=== PATIENT | female | born 1950 | race African-American/Black ===

== ENCOUNTER 2017-01-20 18:31 | Observation (INO) ==
[2017-01-20] MEDS ORDERED: 0.9 % Sodium Chloride 1,000 ML IVC ONE (18:56)
[2017-01-20 19:10] LABS: Basophils # 0.1 K/mcL (0.0-0.2); Eosinophils # 0.3 K/mcL (0.0-0.6); Hematocrit 37.9 % (35.3-44.9); Hemoglobin 13.4 g/dL (11.5-15.4); Immature Granulocytes % 0.1 % (0-4); Lymphocytes % 57.6 %; Mean Corpuscular HGB Conc 35.4 g/dL (31.6-35.5); Mean Corpuscular Hemoglobin 27.6 pg (28.0-33.3); Mean Corpuscular Volume 78.1 fL (83.0-100.0); Mean Platelet Volume 9.2 fL (9.4-12.4); Monocytes # 0.8 K/mcL (0.0-1.3); Monocytes % 11.7 %; Neutrophils # 1.8 K/mcL (1.6-8.9); Platelet Count 268 K/mcL (140-400); Red Blood Count 4.85 M/mcL (3.82-4.97); Red Cell Distribution Width 13.7 % (11.5-14.5); Segmented Neutrophils % 25.6 %
[2017-01-20 19:17] LABS: INR 1.1; Prothrombin Time 11.7 Seconds (9.4-12.1)
[2017-01-20 19:20] LABS: Activated Partial Thrombo Time 27.8 Seconds (26.0-36.0)
--- NOTE | 2017-01-20 19:20 | Emergency Department Note ---
Disposition Clinical Impression: Syncope Qualifiers: Syncope type: unspecified Qualified Code(s): R55 - Syncope and collapse Altered mental status Qualifiers: Altered mental status type: unspecified Qualified Code(s): R41.82 - Altered mental status, unspecified Chest pain Qualifiers: Chest pain type: unspecified Qualified Code(s): R07.9 - Chest pain, unspecified Disposition: Admitted As Inpatient Condition: Fair Referrals: Sosa Bryan MD [Primary Care Provider] - Time of Disposition: 22:14 General Adult HPI - General Chief complaint: ED Weakness Stated complaint: AMS Time Seen by Provider: 01/20/17 18:37 Source: patient, EMS Mode of arrival: ambulatory Nursing Notes Reviewed: Yes Vital Signs Reviewed: Yes - History of Present Illness HPI Narrative: Patient is a 66-year-old female that presents to the emergency department for altered mental status. Patient arrived via EMS. Reports from EMS and the family state that she was going to the bathroom this afternoon and by the nieces went to check on her and she was minimally responsive. They do not think that she fell but did have loss of consciousness. The patient states that she has been having chest pain intermittently for the past couple of days in the left side of her chest. She states that she rates this pain as a 10 out of 10. She also complains of abdominal pain located in the suprapubic area. Patient denies any shortness of breath, urinary symptoms or any other pains at this time. Pain Scale: 10 - Related Data Home Medications Medication Instructions Recorded Confirmed Vit D3/Folic Acid/B2/B6/B12 01/20/17 Previous Rx's Medication Instructions Recorded Ondansetron HCl [Zofran] 4 mg PO Q6HR PRN #10 tablet 09/11/15 Dicyclomine [Bentyl] 10 mg PO DAILY PRN #30 capsule 06/17/16 Allergies Allergy/AdvReac Type Severity Reaction Status Date / Time No Known Allergies Allergy Unverified 03/16/15 08:37 All systems ED: reviewed and negative except as stated. Cardiovascular: Reports: chest pain Respiratory: Denies: dyspnea Gastrointestinal: Reports: abdominal pain Genitourinary: Denies: urgency, dysuria Neurological: Reports: other (Patient states that she has had some tingling in her feet). Denies: weakness, numbness Past Medical History - Past Medical History Medical history: Reports: arthritis, hypertension, myocardial infarction, thyroid disease, other Psychiatric history: Reports: anxiety, depression - Social History Smoking Status: Current every day smoker Smokeless Tobacco Status: No Alcohol use: Reports: none Drug use: Reports: none Physical Exam - General Limitations: altered mental status General appearance: lethargic - Head Head exam: atraumatic, normocephalic - Neck Neck exam: Present: normal inspection, full ROM, trachea midline - Respiratory Respiratory exam: Present: normal lung sounds bilaterally, other (Rales bilaterally). Absent: respiratory distress - Cardiovascular Cardiovascular exam: Present: regular rate, normal rhythm, normal heart sounds, +S1, +S2 - Abdominal Exam Abdominal exam: Present: soft, tenderness, normal bowel sounds Abdominal tenderness: Present: suprapubic, moderate - Neurological Exam Neurological exam: Present: oriented X3, other (Patient is drowsy but oriented 3) - Expanded Neurological Exam Cranial nerves: EOM function (II, III, IV, ): Normal, facial sensation (V): Normal, facial palsy (VII): Normal, gag reflex (IX): Normal, spinal accessory function (XI): Normal, tongue deviation (XII): Normal Cerebellar function: finger to nose: Normal, heel to davis: Normal Motor strength - LUE: 5/5 Motor strength - RUE: 5/5 Motor strength - LLE: 5/5 Motor strength - RLE: 5/5 Sensory exam upper extremity: light touch: Normal Sensory exam lower extremity: light touch: Normal Coma Scale Eye Opening: Spontaneous Coma Scale Motor Response: Obeys Commands Coma Scale Verbal Response: Oriented Coma Scale Total: 15 - Psychiatric Psychiatric exam: Present: normal affect, normal mood - Skin Skin exam: Present: warm, dry, intact Course Vital Signs Temperature 97.7 F 01/20/17 18:32 Pulse Rate 71 01/20/17 18:32 Respiratory Rate 14 01/20/17 18:32 Blood Pressure 95/66 01/20/17 18:32 O2 Sat by Pulse Oximetry 93 01/20/17 18:32 Temperature 97.7 F 01/20/17 18:32 Pulse Rate 67 01/20/17 21:49 Respiratory Rate 16 01/20/17 21:49 Blood Pressure 139/70 01/20/17 21:49 O2 Sat by Pulse Oximetry 98 01/20/17 21:49 Oxygen Delivery Oxygen Delivery Room Air Medical Decision Making - MDM Narrative Medical decision making narrative: After the patient presented with altered mental status and chest pain we have done a cardiac workup as well as sepsis. Also did a CT of the head and a chest x-ray. The CT and chest x-ray were negative for any acute process. The patient 's EKG showed a sinus rhythm and was compared to previous EKG and was relatively unchanged. Patient's troponin was 0.02. Her lactic acid was 2.2. TSH and liver enzymes are within normal limits. Urinalysis had small amount of leuk esterase but this does not explain the patient's altered mental status. Patient stable hemoglobin on the emergency department. Had a normal creatinine and GFR. Patient's urine drug screen is positive for opiates, benzodiazepines and THC. Patient has a known prescription for the opiates and benzodiazepines. Patient stated that she had a headache and was given Tylenol for this. Patient vital signs are stable throughout her time in the emergency department. Due to the patient having a syncopal episode and altered mental status and stating that she still was not feeling well we will recommend that the patient be admitted to the hospital. I spoke with the patient about this and she agreed to be admitted to the hospital. I also updated the family members on the patient's current status and laboratory and imaging results.I called and spoke with Dr Ross at 2215 and they have accepted the patient to their service. Patient will be admitted to the hospital at this time. - Medical Records Medical records reviewed: Yes I reviewed the patient's medical records. - Lab Data Lab results reviewed: Yes I reviewed the patient's lab results. Result diagrams: 01/20/17 18:50 01/20/17 18:50 Lab Results 01/20/17 01/20/17 01/20/17 Range/Units 18:50 18:50 18:50 WBC 7.0 (4.3-11.1) K/mcL RBC 4.85 (3.82-4.97) M/mcL Hgb 13.4 (11.5-15.4) g/dL Hct 37.9 (35.3-44.9) % MCV 78.1 L (83.0-100.0) fL MCH 27.6 L (28.0-33.3) pg MCHC 35.4 (31.6-35.5) g/dL RDW 13.7 (11.5-14.5) % Plt Count 268 (140-400) K/mcL MPV 9.2 L (9.4-12.4) fL Immature Gran % 0.1 (0-4) % Seg Neutrophils % 25.6 % Lymphocytes % 57.6 % Monocytes % 11.7 % Eosinophils % 4.0 % Basophils % 1.0 % Neutrophils # 1.8 (1.6-8.9) K/mcL Lymphocytes # 4.0 (0.6-4.6) K/mcL Monocytes # 0.8 (0.0-1.3) K/mcL Eosinophils # 0.3 (0.0-0.6) K/mcL Basophils # 0.1 (0.0-0.2) K/mcL PT 11.7 (9.4-12.1) Seconds INR 1.1 APTT 27.8 (26.0-36.0) Seconds Sodium 140 (136-145) mEq/L Potassium 3.3 L (3.5-4.5) mEq/L Chloride 107 (98-109) mEq/L Carbon Dioxide 23 (19-29) mEq/L BUN 7 (7-20) mg/dL Creatinine 1.02 (0.57-1.11) mg/dL Est GFR ( Amer) > 60 (> 60) Est GFR (Non-Af Amer) 55 L (> 60) BUN/Creatinine Ratio 7 (6-26) Glucose 109 H (70-99) mg/dL Calculated Osmolality 289 (280-300) Lactic Acid (0.5-2.2) mmol/L Calcium 9.9 (8.6-10.8) mg/dL Total Bilirubin 0.3 (0.2-1.2) mg/dL Direct Bilirubin 0.2 (0.0-0.5) mg/dL Indirect Bilirubin 0.1 (0.0-1.2) mg/dL AST 14 (5-34) Units/L ALT 8 (0-55) Units/L Alkaline Phosphatase 126 (38-126) Units/L Troponin I (0-0.03) ng/mL Serum Total Protein 7.3 (6.0-8.3) g/dL Albumin 3.7 (3.5-5.0) g/dL Globulin 3.6 H (2.4-3.5) g/dL Albumin/Globulin Ratio 1.0 L (1.1-2.2) TSH 2.421 (0.350-4.840) mcIU/mL Urine Color (Yellow) Urine Clarity (Clear) Urine pH (5.0-8.0) pH Units Ur Specific Conception (1.010-1.025) Urine Protein (Neg-Trace) mg/dL Urine Glucose (UA) (Normal) mg/dL Urine Ketones (Negative) mg/dL Urine Blood (Negative) Urine Nitrite (Negative) Urine Bilirubin (Negative) Urine Urobilinogen (Normal) mg/dL Ur Leukocyte Esterase (Negative) Urine Microscopic RBC (0-3) per hpf Urine Microscopic WBC (0-3) per hpf Ur Squamous Epith Cells (None-Few) per lpf Urine Bacteria (None-Few) per hpf Urine Mucus (Few) Ur Culture Indicated? (NO) Urine Opiates Screen (Pcqbqf=223) ng/mL Ur Barbiturates Screen (Yvrqsi=128) ng/mL Ur Phencyclidine Scrn (Cutoff=25) ng/mL Ur Amphetamines Screen (Oaesvr=0501) ng/mL U Benzodiazepines Scrn (Ogjpjt=511) ng/mL Urine Cocaine Screen (Cutoff= 300) ng/mL U Marijuana (THC) Screen (Cutoff = 50) ng/mL Ethyl Alcohol < 10 (0-10) mg/dL 01/20/17 01/20/17 01/20/17 Range/Units 18:58 18:59 18:59 WBC (4.3-11.1) K/mcL RBC (3.82-4.97) M/mcL Hgb (11.5-15.4) g/dL Hct (35.3-44.9) % MCV (83.0-100.0) fL MCH (28.0-33.3) pg MCHC (31.6-35.5) g/dL RDW (11.5-14.5) % Plt Count (140-400) K/mcL MPV (9.4-12.4) fL Immature Gran % (0-4) % Seg Neutrophils % % Lymphocytes % % Monocytes % % Eosinophils % % Basophils % % Neutrophils # (1.6-8.9) K/mcL Lymphocytes # (0.6-4.6) K/mcL Monocytes # (0.0-1.3) K/mcL Eosinophils # (0.0-0.6) K/mcL Basophils # (0.0-0.2) K/mcL PT (9.4-12.1) Seconds INR APTT (26.0-36.0) Seconds Sodium (136-145) mEq/L Potassium (3.5-4.5) mEq/L Chloride (98-109) mEq/L Carbon Dioxide (19-29) mEq/L BUN (7-20) mg/dL Creatinine (0.57-1.11) mg/dL Est GFR ( Amer) (> 60) Est GFR (Non-Af Amer) (> 60) BUN/Creatinine Ratio (6-26) Glucose (70-99) mg/dL Calculated Osmolality (280-300) Lactic Acid (0.5-2.2) mmol/L Calcium (8.6-10.8) mg/dL Total Bilirubin (0.2-1.2) mg/dL Direct Bilirubin (0.0-0.5) mg/dL Indirect Bilirubin (0.0-1.2) mg/dL AST (5-34) Units/L ALT (0-55) Units/L Alkaline Phosphatase (38-126) Units/L Troponin I 0.02 (0-0.03) ng/mL Serum Total Protein (6.0-8.3) g/dL Albumin (3.5-5.0) g/dL Globulin (2.4-3.5) g/dL Albumin/Globulin Ratio (1.1-2.2) TSH (0.350-4.840) mcIU/mL Urine Color Dark Yellow (Yellow) Urine Clarity Cloudy A (Clear) Urine pH 5.5 (5.0-8.0) pH Units Ur Specific Conception 1.028 H (1.010-1.025) Urine Protein 30 H (Neg-Trace) mg/dL Urine Glucose (UA) Normal (Normal) mg/dL Urine Ketones Trace H (Negative) mg/dL Urine Blood Negative (Negative) Urine Nitrite Negative (Negative) Urine Bilirubin Small H (Negative) Urine Urobilinogen Normal (Normal) mg/dL Ur Leukocyte Esterase Small H (Negative) Urine Microscopic RBC 3-5 H (0-3) per hpf Urine Microscopic WBC 3-5 H (0-3) per hpf Ur Squamous Epith Cells Many H (None-Few) per lpf Urine Bacteria None Seen (None-Few) per hpf Urine Mucus Moderate H (Few) Ur Culture Indicated? YES A (NO) Urine Opiates Screen Positive H (Natyqw=031) ng/mL Ur Barbiturates Screen Negative (Ppsmdx=246) ng/mL Ur Phencyclidine Scrn Negative (Cutoff=25) ng/mL Ur Amphetamines Screen Negative (Cfvpcb=4696) ng/mL U Benzodiazepines Scrn Positive H (Sqecmo=034) ng/mL Urine Cocaine Screen Negative (Cutoff= 300) ng/mL U Marijuana (THC) Screen Positive H (Cutoff = 50) ng/mL Ethyl Alcohol (0-10) mg/dL 01/20/17 Range/Units 20:37 WBC (4.3-11.1) K/mcL RBC (3.82-4.97) M/mcL Hgb (11.5-15.4) g/dL Hct (35.3-44.9) % MCV (83.0-100.0) fL MCH (28.0-33.3) pg MCHC (31.6-35.5) g/dL RDW (11.5-14.5) % Plt Count (140-400) K/mcL MPV (9.4-12.4) fL Immature Gran % (0-4) % Seg Neutrophils % % Lymphocytes % % Monocytes % % Eosinophils % % Basophils % % Neutrophils # (1.6-8.9) K/mcL Lymphocytes # (0.6-4.6) K/mcL Monocytes # (0.0-1.3) K/mcL Eosinophils # (0.0-0.6) K/mcL Basophils # (0.0-0.2) K/mcL PT (9.4-12.1) Seconds INR APTT (26.0-36.0) Seconds Sodium (136-145) mEq/L Potassium (3.5-4.5) mEq/L Chloride (98-109) mEq/L Carbon Dioxide (19-29) mEq/L BUN (7-20) mg/dL Creatinine (0.57-1.11) mg/dL Est GFR ( Amer) (> 60) Est GFR (Non-Af Amer) (> 60) BUN/Creatinine Ratio (6-26) Glucose (70-99) mg/dL Calculated Osmolality (280-300) Lactic Acid 2.2 (0.5-2.2) mmol/L Calcium (8.6-10.8) mg/dL Total Bilirubin (0.2-1.2) mg/dL Direct Bilirubin (0.0-0.5) mg/dL Indirect Bilirubin (0.0-1.2) mg/dL AST (5-34) Units/L ALT (0-55) Units/L Alkaline Phosphatase (38-126) Units/L Troponin I (0-0.03) ng/mL Serum Total Protein (6.0-8.3) g/dL Albumin (3.5-5.0) g/dL Globulin (2.4-3.5) g/dL Albumin/Globulin Ratio (1.1-2.2) TSH (0.350-4.840) mcIU/mL Urine Color (Yellow) Urine Clarity (Clear) Urine pH (5.0-8.0) pH Units Ur Specific Conception (1.010-1.025) Urine Protein (Neg-Trace) mg/dL Urine Glucose (UA) (Normal) mg/dL Urine Ketones (Negative) mg/dL Urine Blood (Negative) Urine Nitrite (Negative) Urine Bilirubin (Negative) Urine Urobilinogen (Normal) mg/dL Ur Leukocyte Esterase (Negative) Urine Microscopic RBC (0-3) per hpf Urine Microscopic WBC (0-3) per hpf Ur Squamous Epith Cells (None-Few) per lpf Urine Bacteria (None-Few) per hpf Urine Mucus (Few) Ur Culture Indicated? (NO) Urine Opiates Screen (Yadfmz=004) ng/mL Ur Barbiturates Screen (Bsqubg=071) ng/mL Ur Phencyclidine Scrn (Cutoff=25) ng/mL Ur Amphetamines Screen (Gdutyz=2662) ng/mL U Benzodiazepines Scrn (Imyrmx=945) ng/mL Urine Cocaine Screen (Cutoff= 300) ng/mL U Marijuana (THC) Screen (Cutoff = 50) ng/mL Ethyl Alcohol (0-10) mg/dL - Radiology Data Radiology results reviewed: Yes I reviewed the patient's radiology results. Chest X-Ray 01/20/17 18:49 IMPRESSION: No acute process. D/ / William Xiong MD / William Xiong MD Interpreting Provider: William Xiong MD Head CT 01/20/17 18:50 IMPRESSION: No acute intracranial abnormality. D/ / William Xiong MD / William Xiong MD Interpreting Provider: William Xiong MD - EKG Data EKG #1 EKG attestation: Yes I reviewed and interpreted this EKG. EKG results narrative: EKG showed a sinus rhythm with a rate of 65 bpm, MT interval of 183, QRS of 109 , QTC of 407 with a normal axis. There are some nonspecific T-wave inversions in the inferior lateral leads. This was compared to previous EKG on 09/11/15. The T-wave inversions were present in the inferior leads and there were some T- wave flattening in the lateral leads. I do not note any acute changes between these 2 EKGs. Attestation Statement - Attestation Attestation: I examined this patient and my medical decision-making was reviewed with the Resident Physician. I agree with the documented findings, disposition and treatment plan as described except to the extent set forth below. Patient to the emergency department after a syncopal episode. The patient states laceration members as walking to the bathroom. She was found slumped over on the toilet. He was awake and responsive time EMS arrived. Complains of abdominal pain which she has had for several days. She is also recently had a cough for which she has taken amoxicillin and is helped. Complained of chest pain to others but not to me. On examination she is awake alert. Oriented 3. Mentating at baseline per the 2 family members in the room. Moving all extremities. Complains of some mild diffuse abdominal tenderness. She is not guarding. Her lungs are clear. Plan. The patient's workup is a normal white count. Lites otherwise unremarkable. Head CT unremarkable. Unclear if the patient had a syncopal episode. Admitted to medicine for observation and further workup.
[2017-01-20 19:25] LABS: Alanine Aminotransferase 8 Units/L (0-55); Albumin 3.7 g/dL (3.5-5.0); Alkaline Phosphatase 126 Units/L (38-126); Aspartate Amino Transferase 14 Units/L (5-34); BUN/Creatinine Ratio 7 (6-26); Bilirubin,Direct 0.2 mg/dL (0.0-0.5); Bilirubin,Indirect 0.1 mg/dL (0.0-1.2); Bilirubin,Total 0.3 mg/dL (0.2-1.2); Blood Urea Nitrogen 7 mg/dL (7-20); Calcium 9.9 mg/dL (8.6-10.8); Carbon Dioxide 23 mEq/L (19-29); Chloride 107 mEq/L (98-109); Globulin 3.6 g/dL (2.4-3.5); Glucose 109 mg/dL (70-99); Osmolality,Calculated 289 (280-300); Potassium 3.3 mEq/L (3.5-4.5); Sodium 140 mEq/L (136-145); Total Protein 7.3 g/dL (6.0-8.3); eGFR For African Americans > 60 (> 60); eGFR For Non-African Americans 55 (> 60)
[2017-01-20 19:26] LABS: Ethanol < 10 mg/dL (0-10)
[2017-01-20 19:31] LABS: Bilirubin,Urine Small (Negative); Blood,Urine Negative (Negative); Clarity,Urine Cloudy (Clear); Color,Urine Dark Yellow (Yellow); Glucose,Urine (UA) Normal (Normal); Ketones,Urine Trace mg/dL (Negative); Leukocyte Esterase,Urine Small (Negative); Nitrite,Urine Negative (Negative); PH,Urine 5.5 pH Units (5.0-8.0); Protein,Urine 30 mg/dL (Neg-Trace); Specific Gravity,Urine 1.028 (1.010-1.025); Urobilinogen,Urine Normal (Normal)
[2017-01-20 19:34] LABS: Bacteria,Urine None Seen per hpf (None-Few); Squamous Epithelial Cell,Urine Many per lpf (None-Few)
[2017-01-20 19:38] LABS: Amphetamine Screen,Urine Negative ng/mL (Cutoff=1000); Barbiturate Screen,Urine Negative ng/mL (Cutoff=200); Benzodiazepines Screen,Urine Positive ng/mL (Cutoff=200); Cannabinoid Screen,Urine Positive ng/mL (Cutoff = 50); Cocaine Screen,Urine Negative ng/mL (Cutoff= 300); Opiate Screen,Urine Positive ng/mL (Cutoff=300); Phencyclidine Screen,Urine Negative ng/mL (Cutoff=25)
[2017-01-20 20:03] LABS: Mucus,Urine Moderate (Few)
[2017-01-20 20:22] LABS: Thyroid Stimulating Hormone 2.421 mcIU/mL (0.350-4.840)
[2017-01-20] MEDS ORDERED: Aspirin 325 MG TABLET PO ONE (22:33)
[2017-01-21] MEDS ORDERED: Ondansetron 4 MG/2 ML VIAL IVP PRN (00:03)
[2017-01-21] MEDS ORDERED: Naloxone 0.4 MG/ML INJ IVP PRN (00:03)
--- NOTE | 2017-01-21 00:38 | Internal Med History&Physical ---
Date of Encounter: 01/21/17 Time of Encounter: 11:40 Assessment and Plan (1) Chest pain Current visit: Yes Status: Acute given clinical presentation and history, will admit to rule out ACS serial TNI if serial TNI remain negative, nuclear stress test in am NPO after midnight nitroglycerin SL PRN pain O2 supplementation as needed tele monitoring will closely monitor Please restart home medications in am after verification Qualifiers: Chest pain type: unspecified Qualified Code(s): R07.9 - Chest pain, unspecified (2) Syncope Current visit: Yes Status: Acute of unclear etiology CT head negative will rule out cardiogenic causes f/u 2D echo, carotid dopplers will obtain orthostatic vitals fall precautions will continue to closely monitor Qualifiers: Syncope type: unspecified Qualified Code(s): R55 - Syncope and collapse (3) Hypokalemia Current visit: Yes Status: Acute K supplemented continue to monitor electrolytes and replace as needed (4) Tobacco abuse Current visit: Yes Status: Acute smoking cessation and polysubstance abuse counseling provided Nicotine supplementation provided (5) DVT prophylaxis Current visit: Yes Status: Acute Heparin SQ Internal Medicine - H&P: HPI Chief complaint: syncope Admitted From: Home Plans for Post Hospital Care: Home History of present illness: Ms. Amezcua is a 66 year old female with PMH of CAD, hypertension, arthritis, thyroid disease, chronic back pain who is presented to the ER s/p a syncopal episode. Pt states she has had worsening back and bilateral hip pain for which she already has received epidural injections. She reports the pain had worsened for the last few days and she started using marijuana in addition to taking her home pain medications. She also reports of having intermittent substernal chest pain with radiation to the left arm for the last few days which is relieved with sublingual nitro. She states she had chest pain earlier today for which she took sublingual nitro. She went to use the bathroom and felt sick because of her back pain, and had a fainting episode in the bathroom. Her grand daughter went to the bathroom with her and witnessed the episode. Her family called EMS due to her syncope. No trauma was reported, but pt reports of having LOC for a few minutes. At this time she is resting in bed and reports of lower back and hip pain but denies any chest pain, sob at this time. No fever, dysuria reported. Code Status: Full code Social history: Every day smoker Past Med Surg Social Fam HX - Past Medical History Medical history: arthritis, hypertension, myocardial infarction, thyroid disease , other Psychiatric history: anxiety, depression - Past Surgical History Surgical History: no surgical history - Social History Smoking Status: Current every day smoker Packs per day: 1 ppd Smokeless Tobacco Status: No Alcohol use: none Drug use: none Internal Medicine - H&P: Meds Ondansetron HCl [Zofran] 4 mg PO Q6HR PRN #10 tablet 09/11/15 [Rx] Dicyclomine [Bentyl] 10 mg PO DAILY PRN #30 capsule 06/17/16 [Rx] Vit D3/Folic Acid/B2/B6/B12 01/20/17 [History] 3 Allergy/AdvReac Type Severity Reaction Status Date / Time No Known Allergies Allergy Unverified 03/16/15 08:37 All Systems PM: A 10-system review of systems was performed and is negative for pertinent findings except as documented above in the HPI. - Constitutional Constitutional: as per HPI - Constitutional Vitals: Temp Pulse Resp BP Pulse Ox 97.5 F L 60 15 121/73 98 01/21/17 00:15 01/21/17 00:15 01/21/17 00:15 01/21/17 00:15 01/21/17 00:15 General appearance: Present: disheveled, A&O X 3, no acute distress, answers questions appropriately - Head Head exam: Present: atraumatic, normocephalic - Eye Eye exam: Present: conjuntiva pink, sclera anicteric - Respiratory Respiratory exam: Present: CTAB. Absent: respiratory distress, wheezes - Cardiovascular Cardiovascular exam: Present: RRR, +S1, +S2, systolic murmur. Absent: bradycardia, clicks, gallop, tachycardia - GI/Abdominal GI/Abdominal exam: Present: normal bowel sounds, soft, no peritoneal signs. Absent: distended, tenderness - Extremities Exam Extremities exam: Present: warm, radial pulses palpable and symmetrical. Absent : calf tenderness, cyanotic, pedal edema - Neurological Exam Neurological exam: Present: alert, oriented X3 Internal Med - H&P Results - Labs CBC & Chem 7: 01/20/17 18:50 01/20/17 18:50
[2017-01-21] MEDS ORDERED: *HR* Morphine 2 MG/ML SYRINGE IVP PRN (00:41)
[2017-01-21] MEDS ORDERED: Nitroglycerin 0.4 MG TAB.SUBL SL PRN (00:42)
[2017-01-21] MEDS: Nicotine 14 MG PATCH.TD24 TD SCH ×2 (01:21→10:40)
[2017-01-21 01:26] LABS: Basophils # 0.1 K/mcL (0.0-0.2); Basophils % 0.7 %; Eosinophils # 0.2 K/mcL (0.0-0.6); Hematocrit 35.1 % (35.3-44.9); Hemoglobin 12.2 g/dL (11.5-15.4); Immature Granulocytes % 0.1 % (0-4); Lymphocytes % 43.6 %; Mean Corpuscular HGB Conc 34.8 g/dL (31.6-35.5); Mean Corpuscular Hemoglobin 27.2 pg (28.0-33.3); Mean Corpuscular Volume 78.2 fL (83.0-100.0); Mean Platelet Volume 9.2 fL (9.4-12.4); Monocytes # 0.6 K/mcL (0.0-1.3); Monocytes % 8.1 %; Platelet Count 246 K/mcL (140-400); Red Blood Count 4.49 M/mcL (3.82-4.97); Red Cell Distribution Width 13.7 % (11.5-14.5); Segmented Neutrophils % 44.5 %
[2017-01-21 01:46] LABS: BUN/Creatinine Ratio 7 (6-26); Blood Urea Nitrogen 6 mg/dL (7-20); Calcium 9.1 mg/dL (8.6-10.8); Carbon Dioxide 23 mEq/L (19-29); Chloride 109 mEq/L (98-109); Chol/HDL Ratio 5.5 (0-4.9); Cholesterol 143 mg/dL (< 200); Glucose 115 mg/dL (70-99); HDL Cholesterol 26 mg/dL (40-59); LDL Cholesterol,Calculated 90 mg/dL (0-99); Magnesium 1.7 mg/dL (1.6-2.6); Osmolality,Calculated 287 (280-300); Phosphorous 3.2 mg/dL (2.3-4.7); Potassium 3.6 mEq/L (3.5-4.5); Sodium 139 mEq/L (136-145); Triglycerides 133 mg/dL (< 150); eGFR For African Americans > 60 (> 60); eGFR For Non-African Americans > 60 (> 60)
[2017-01-21] MEDS ORDERED: *HR* Heparin 5,000 UNIT/ML VIAL SQ SCH (06:00)
[2017-01-21] MEDS ORDERED: Regadenoson 0.4 MG/5 ML SYRINGE IVP ONE (06:26)
[2017-01-21] MEDS ORDERED: Aspirin Enteric Coated 81 MG Tablet PO SCH (09:00)
--- NOTE | 2017-01-21 10:56 | Nuclear Medicine Stress Report ---
Regadenoson Nuclear Stress Name: Yolette Amezcua Date of Study: 01/21/2017 Date: 1950 Ht: 66.0 in Medical Record#: [id number] Age: 66 Wt: 150.0 lb Gender: Female Order #: [id number] Location: [facility] Room: [facility] ([place] Supervising Provider: Natasha Szymanski CNP Reading Physician: Chico Oh DO, FACC, ANGEL ISBELL Ordering Physician: Michelle Samuel MD Primary Care Physician: Darrel Bryan MD Stress Technologist: Monica Leggett, LOG SCALER, CCT, CPFT Cementing Bulk Material Operator: Vernon Diaz Indications: Chest Pain Impression: Pharmacologic stress ECG is non-diagnostic for ischemia due to baseline ST and T-wave changes. Gated EF = 55%. Medium-sized, mild to moderate intensity, fixed inferior and inferolateral perfusion defect. Wall motion is normal. Findings are consistent with artifact. Perfusion imaging was negative for ischemia or infarct. History: Hypertension Hypercholesteremia History of Smoking Stress Test Summary: Stress Test Type: Pharmacologic Regadenoson 0.4mg/5ml given IV Baseline Information: Initial Heart Rate: 78 Blood Pressure: 152/96 Stress Information: Stress Time: 4 min sec Test Terminated Due to (primary): As per protocol Maximum Blood Pressure: 162/100 Maximum Heart Rate: 103 Percent Maximum Heart Rate Achieved: 66 Double Product: [id number] METS Reached: 1 Symptoms: Shortness of breath Nuclear Summary: SPECT myocardial perfusion imaging using Tc99m Sestamibi given intravenously was performed at rest and following cardiac stress testing. The resting images were obtained following initial dose of 11.4 mCi. Following stress an additional dose of 35.6 mCi was given at peak exercise or 30 seconds post regadenoson infusion. Medication Given: Time Medication Dose Units Route Findings: Stress Note * Resting ECG demonstrated normal sinus rhythm with nonspecific ST and T-wave changes. * No baseline arrhythmias were noted. * Pharmacologic stress ECG is non-diagnostic for ischemia due to baseline ST and T-wave changes. * Occasional PACs noted during stress. 2 PVCs noted in recovery. * Patient had no chest pain during stress. * Normal hemodynamic responses to pharmacologic stress. Study Quality * Study quality is average. Gated EF % * Gated EF = 55%. * Normal wall motion. Inferior Perfusion Rest * The inferior and inferolateral segments demonstrate a mhnc-la-wzoorvih reduction in perfusion. Inferior Perfusion Stress * The inferior and inferolateral segments demonstrate a bubc-[id number]-[id number] reduction in perfusion. TID * No evidence of transient ischemic dilatation. TID ratio * TID ratio = 1.04. Lung Uptake * There is no evidence of increase lung uptake. Updated by Chico Oh DO, FACYuriy, AKILAH, ANGEL on 01/21/2017 10:50:08 AM electronically signed on 01/21/2017 10:51:28 AM with status of Final
[2017-01-21 11:04] VITALS: BP 153/80
[2017-01-21] MEDS ORDERED: ALPRAZolam 1 MG TABLET PO PRN (11:34)
--- NOTE | 2017-01-21 12:02 | Electrocardiograph Report ---
[address] [place], [place] [address] Test Date: 2017-01-20 Pat Name: Yolette Amezcua Department: 103 Room: 3A Gender: F Discharge Rn: : 1950 Requested By: Napoleon Enriquez Order Number: [id number] Reading MD: Linda Shelton Measurements Intervals Hartley Rate: 65 P: 13 VA: 183 QRS: 14 QRSD: 109 T: -54 QT: 396 QTc: 407 Interpretive Statements SINUS RHYTHM INFERIOR MYOCARDIAL INFARCTION OF INDETERMINATE AGE MODERATE T-WAVE ABNORMALITY, CONSIDER ANTEROLATERAL ISCHEMIA Electronically Signed On 01-21-2017 12:01:18 EDT by Linda Shelton
--- NOTE | 2017-01-21 12:20 | Discharge Summary ---
Date of Encounter: 01/21/17 Time of Encounter: 12:17 - Discharge Diagnosis (1) Syncope Priority: Primary Status: Acute Qualifiers: Syncope type: vasovagal syncope Qualified Code(s): R55 - Syncope and collapse (2) Chest pain Priority: Secondary Status: Acute Qualifiers: Chest pain type: unspecified Qualified Code(s): R07.9 - Chest pain, unspecified (3) Aortic regurgitation Priority: Secondary Status: Chronic Qualifiers: Cardiac valve disease etiology: etiology unspecified Qualified Code(s): I35.1 - Nonrheumatic aortic (valve) insufficiency (4) Aortic stenosis Priority: Secondary Status: Chronic Qualifiers: Cardiac valve disease etiology: etiology unspecified Qualified Code(s): I35.0 - Nonrheumatic aortic (valve) stenosis (5) DVT prophylaxis Priority: Secondary Status: Acute (6) Hypokalemia Priority: Secondary Status: Acute (7) Tobacco abuse Priority: Secondary Status: Acute - Discharge Medications Home Medications: ALPRAZolam [Xanax 0.5 MG Tablet] 1 mg PO BID 01/21/17 [History] Amoxicillin [Amoxil] 500 mg PO QID 01/21/17 [History] Aspirin Enteric Coated [Aspirin EC] 81 mg PO DAILY tablet. 01/21/17 [Rx] Atorvastatin [Lipitor] 40 mg PO HS 01/21/17 [History] DULoxetine [Cymbalta] 30 mg PO DAILY 01/21/17 [History] Gabapentin [Neurontin] 300 mg PO BID 01/21/17 [History] Isosorbide MONOnitrate (24 HR) [Imdur] 30 mg PO DAILY 01/21/17 [History] Levothyroxine [Synthroid] 75 mcg PO 0630 01/21/17 [History] Lisinopril [Zestril] 20 mg PO DAILY 01/21/17 [History] Metoprolol Tartrate [Lopressor] 100 mg PO BID 01/21/17 [History] Pantoprazole Sodium [Protonix] 40 mg PO DAILY 01/21/17 [History] Allergies/Adverse Reactions: 3 Allergy/AdvReac Type Severity Reaction Status Date / Time No Known Allergies Allergy Unverified 03/16/15 08:37 Procedures/tests Complete & Pending: Procedures Performed prior 72 hours Category Date Time Status NM ivan perf SPECT multi [NM] Routine Exams 01/21/17 05:50 Taken EV carotid duplex imaging BI Stat Y 01/21/17 00:05 Completed EV echocardiogram Stat Y 01/21/17 00:04 Completed SP pharm nuclear stress Stat Y 01/21/17 00:40 Completed Date of admission: 01/20/17 22:41 Primary care physician: Sosa Bryan MD Discharging clinician: Michelle Samuel Anticipated date of discharge: 01/21/17 - Patient Status Disposition: Home, Self-Care Condition: Good Functional capacity at discharge: independent ambulation Overall status at discharge: patient is progressing back to baseline - Discharge Instructions Instructions: Chest Pain (DC), Syncope (DC) Follow Up With: Sosa Bryan MD [Primary Care Provider] - 02/01/17 2:00 pm (1 week) Nils Rodriguez MD [Partnered Physician] - (One week The office will call you at home with the date and time of appt. 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 Amezcua is a 66 year old female patient with history of coronary artery disease, hypertension, thyroid disease and chronic back pain who presented to the ER with complaints of chest pain. She was also having worsening back and bilateral hip pain for which she has previously received epidural injections with no significant improvement in her symptoms. She also reported a syncopal episode while she was in the bathroom when she developed intense pain in her abdomen and back. Pain subsided by the time she regained consciousness. This was a witnessed episode with no trauma or seizure-like activity. LOC was few minutes. She was observed here for chest pain and to evaluate for syncope. Troponins were negative and patient underwent cardiac stress test which did not show any reversible ischemia. A 2-D echocardiogram done here showed EF of 55-60% with mild left-ventricular diastolic dysfunction, moderate to severe aortic regurgitation and moderate aortic stenosis. Patient is aware of her aortic regurgitation and stenosis and follows up with cardiology as outpatient. Carotid Dopplers did not reveal any significant stenosis. CT of the head a were also did not show any acute process. At this time, patient feels better. She is no longer having any chest pain. She still has her chronic back pain. She can follow up with pain management as outpatient for further evaluation and management. Discussed her case with cardiology and they recommended outpatient follow-up with her vehicle fare collector for her aortic regurgitation and stenosis. She will be discharged today and will continue her home medications without any changes at this time. - Time Spent with Patient Total time spent providing and/or coordinating discharge services: Greater than 30 minutes (35 min) - Constitutional Vitals: Temp Pulse Resp BP Pulse Ox 97.7 F 75 16 153/80 99 01/21/17 11:02 01/21/17 11:02 01/21/17 11:02 01/21/17 11:02 01/21/17 11:02 General appearance: Present: cooperative, A&O X 3, no acute distress, answers questions appropriately - Eye Eye exam: Present: EOMI, PERRL, conjuntiva pink, sclera anicteric - Respiratory Respiratory exam: Present: CTAB. Absent: accessory muscle use, rales, rhonchi, wheezes - Cardiovascular Cardiovascular exam: Present: RRR, +S1, +S2. Absent: diastolic murmur, gallop, rubs, systolic murmur - GI/Abdominal GI/Abdominal exam: Present: normal bowel sounds, soft, no peritoneal signs. Absent: distended, tenderness - Extremities Exam Extremities exam: Present: warm, radial pulses palpable and symmetrical. Absent : calf tenderness, cyanotic, pedal edema - Neurological Exam Neurological exam: Present: alert, oriented X3, no focal deficits. Absent: facial droop, speech deficit
--- NOTE | 2017-01-21 22:51 | Carotid Imaging Report ---
Carotid Duplex Patient Name:Yolette Amezcua Order Number:[id number] Procedure Date:01/21/2017 Date:1950ge:66 yrs Gender:Female Lt BP:148 / 79 mmHg Rt.BP:153 / 82 mmHgHeart Rate: Location:[facility] Room #: 3A Senior Payroll Administrator:Monty Dwyer RN, RDCS Referring MD:Rosemary Harden MD Reading MD:Godfrey Radford MD , FACS Primary Indications:Syncope Risk Factors Yes/No Hypertension Yes Diabetes No Hypercholesterolemia Yes Smoker Previous Yes Hx of TIA No Hx of CVA No Anticoagulants No Hx of CAD/PTCA No Previous Vascular Surgery No Impressions: Findings: Bilateral carotid systems are essentially normal. Recommendations: Test completed on 01/21/2017 at 8:25:00 am. Findings Carotid Duplex: Right: The right proximal common carotid artery has a PSV of 95 cm/s and a EDV of 13 cm/s. The right mid common carotid artery has a PSV of 89 cm/s and a EDV of 16 cm/s. The right distal common carotid artery has a PSV of 67 cm/s and a EDV of 16 cm/s. The right bifurcation has a PSV of 49 cm/s and a EDV of 11 cm/s. The right proximal internal carotid artery has a PSV of 55 cm/s and a EDV of 13 cm/s. The right mid internal carotid artery has a PSV of 100 cm/s and a EDV of 33 cm/s. The right distal internal carotid artery has a PSV of 77 cm/s and a EDV of 18 cm/s. The right eca has a PSV of 92 cm/s and a EDV of 18 cm/s. The right vertebral artery has a PSV of 64 cm/s and a EDV of 16 cm/s. The right distal internal carotid artery was not well visualized. Left: The left proximal common carotid artery has a PSV of 84 cm/s and a EDV of 14 cm/s. The left mid common carotid artery has a PSV of 70 cm/s and a EDV of 18 cm/s. The left distal common carotid artery has a PSV of 62 cm/s and a EDV of 19 cm/s. The left bifurcation has a PSV of 48 cm/s and a EDV of 14 cm/s. The left proximal internal carotid artery has a PSV of 67 cm/s and a EDV of 21 cm/s. The left mid internal carotid artery has a PSV of 107 cm/s and a EDV of 38 cm/s. The left distal internal carotid artery has a PSV of 85 cm/s and a EDV of 26 cm/s. The left eca has a PSV of 69 cm/s and a EDV of 15 cm/s. The left vertebral artery has a PSV of 32 cm/s and a EDV of 10 cm/s. The left distal internal carotid artery was not well visualized. Prior Study: No prior study available for comparison. Carotid Results Right PSV EDV Assessment Proximal CCA 95 13 Normal Mid CCA 89 16 Normal Distal CCA 67 16 Normal Bifurcation 49 11 Normal Proximal ICA 55 13 Normal Mid ICA 100 33 Normal Distal ICA 77 18 Not Well Visualized ECA 92 18 Normal Vertebral Artery 64 16 Normal Left PSV EDV Assessment Proximal CCA 84 14 Normal Mid CCA 70 18 Normal Distal CCA 62 19 Normal Bifurcation 48 14 Normal Proximal ICA 67 21 Normal Mid ICA 107 38 Normal Distal ICA 85 26 Not Well Visualized ECA 69 15 Normal Vertebral Artery 32 10 Normal Ratio's Right ICA/CCA Ratio: 1.12 ICA/CCA Values: 100/89 Left ICA/CCA Ratio: 1.53 ICA/CCA Values: 107/70 Updated by Godfrey Radford MD, FACS on 01/21/2017 10:45:00 PM Godfrey Radford MD electronically signed on 01/21/2017 10:45:25 PM with status of Final
[2017-01-22] MEDS ORDERED: Isosorbide MONOnitrate (24 HR) 30 MG TAB.ER.24H PO SCH (09:00)
[2017-01-22] MEDS ORDERED: Lisinopril 20 MG TABLET PO SCH (09:00)
== END 2017-01-21 14:58 | disposition home or self-care (01) ==
LOC: 3ANU 18:31 → EMEROO 18:31 → 3ANU 23:59
PROVIDERS: ADMIT Internal Medicine; ATTEND Internal Medicine